=== PATIENT | female | born 1955 | race Caucasian/White ===

== ENCOUNTER 2025-06-29 14:01 | Outpatient (CLI) | payer MEDICARE | END 2025-06-29 14:02 | disposition home or self-care (01) | LOC: RAD 14:01 → EDBD 14:01 → RAD 14:02 | PROVIDERS: ATTEND Internal Medicine | DX: R06.00 Dyspnea, unspecified (principal); J90 Pleural effusion, not elsewhere classified | CPT/HCPCS: 71046 ==

== ENCOUNTER 2025-07-06 13:34 | Outpatient (CLI) | payer MEDICARE ==
[~2025-07-06 13:34] MED LIST: Iopamidol 370 76% 100 ML VIAL ONE
[2025-07-06 14:13] LABS: Estimated GFR - POC 62.0
== END 2025-07-06 13:35 | disposition home or self-care (01) ==
LOC: CT 13:34
PROVIDERS: ATTEND Family Medicine
DX: J18.9 Pneumonia, unspecified organism (principal); R06.00 Dyspnea, unspecified; R09.02 Hypoxemia; R06.89 Other abnormalities of breathing; J90 Pleural effusion, not elsewhere classified; R91.8 Other nonspecific abnormal finding of lung field; C79.51 Secondary malignant neoplasm of bone
CPT/HCPCS: 36415; 71275; 82565

== ENCOUNTER 2025-07-06 16:58 | Inpatient (IN) | payer MEDICARE ==
[2025-07-06] MEDS ORDERED: cefTRIAXone (ROCEPHIN) 2 GM VIAL ONE (18:45)
[2025-07-06] MEDS ORDERED: Azithromycin 500 MG VIAL ONE (18:46)
[2025-07-06 18:52] LABS: #Basophils 0.03 10x3/uL (0.0-0.2); #Eosinophils 0.14 10x3/uL (0.0-0.7); #Monocytes 0.13 10x3/uL (0.11-0.59); #Neutrophils 1.87 10x3/uL (1.40-6.50); %Basophils 1.3 % (0.0-1.0); %Eosinophils 5.9 % (0.0-10.0); %Lymphocytes 8.0 % (21.0-51.0); %Monocytes 5.5 % (0.0-10.0); %Neutrophils 78.9 % (42.0-75.0); Hematocrit 26.0 % (36.0-47.0); Hemoglobin 9.2 g/dL (12.0-16.0); Mean Corpuscular Hemoglobin 35.2 pg (27.0-31.0); Mean Corpuscular Volume 99.6 fL (78.0-98.0); Platelet Count 125 10x3/uL (130-400); Red Blood Cell (RBC) Count 2.61 mill/uL (4.20-5.40); White Blood Cell (WBC) Count 2.37 10x3/uL (4.8-10.8)
[2025-07-06 19:11] LABS: ALT (SGPT) 16 U/L (Less than 34); AST (SGOT) 29 U/L (11-34); Albumin 2.1 g/dL (3.1-4.5); Alkaline Phosphatase 60 U/L (40-110); Anion Gap 11 mmol/L (10-20); BUN (Urea Nitrogen) 15 mg/dL (9.8-20.1); Bilirubin, Total 0.4 mg/dL (0.3-1.2); Calc. Creatinine Clearance 0 mL/min (70-130); Calcium 8.5 mg/dL (7.8-10.44); Carbon Dioxide 27 mmol/L (23-31); Chloride 95 mmol/L (98-107); Globulin 3.5 g/dL (2.4-3.5); Glucose 95 mg/dL (80-115); Potassium 3.3 mmol/L (3.5-5.1); Sodium 130 mmol/L (136-145)
[2025-07-06] MEDS ORDERED: Ondansetron PF 4 MG/2 ML Vial IVP PRN (20:57)
[2025-07-06 22:00] VITALS: BMI 18.1
[2025-07-06] MEDS ORDERED: Enoxaparin 60 MG (0.6 mL) SYRINGE ONE (22:04)
[2025-07-06] MEDS: Enoxaparin 60 MG (0.6 mL) SYRINGE SC SCH (22:08)
[2025-07-07 01:52] LABS: Magnesium 1.9 mg/dL (1.6-2.6)
[2025-07-07 05:36] LABS: Anion Gap 12 mmol/L (10-20); BUN (Urea Nitrogen) 11 mg/dL (9.8-20.1); Calc. Creatinine Clearance 53 mL/min (70-130); Calcium 8.2 mg/dL (7.8-10.44); Carbon Dioxide 26 mmol/L (23-31); Chloride 99 mmol/L (98-107); Glucose 102 mg/dL (80-115); Magnesium 1.8 mg/dL (1.6-2.6); Potassium 3.7 mmol/L (3.5-5.1); Sodium 133 mmol/L (136-145)
[2025-07-07 05:41] LABS: #Basophils 0.03 10x3/uL (0.0-0.2); #Eosinophils 0.15 10x3/uL (0.0-0.7); #Monocytes 0.11 10x3/uL (0.11-0.59); #Neutrophils 1.64 10x3/uL (1.40-6.50); %Basophils 1.4 % (0.0-1.0); %Eosinophils 7.2 % (0.0-10.0); %Lymphocytes 7.2 % (21.0-51.0); %Monocytes 5.3 % (0.0-10.0); %Neutrophils 78.4 % (42.0-75.0); Hematocrit 26.4 % (36.0-47.0); Hemoglobin 9.0 g/dL (12.0-16.0); Mean Corpuscular Hemoglobin 34.9 pg (27.0-31.0); Mean Corpuscular Volume 102.3 fL (78.0-98.0); Platelet Count 128 10x3/uL (130-400); Red Blood Cell (RBC) Count 2.58 mill/uL (4.20-5.40); White Blood Cell (WBC) Count 2.09 10x3/uL (4.8-10.8)
[2025-07-07] MEDS: Metoprolol Succinate XL 25 MG ER.TAB PO SCH (08:33)
[2025-07-07] MEDS ORDERED: Metoprolol Succinate XL 25 MG ER.TAB PO SCH (09:00)
[2025-07-07 13:28] LABS: Legionella Urinary Ag Negative (Negative); Strep pneumo Urine Ag NEGATIVE (NEGATIVE)
[2025-07-07 14:09] LABS: Fluid, Triglycerides 15 mg/dL (Not Available); Pleural Fluid, Amylase Less than 30 U/L (Not Available); Pleural Fluid, Glucose 111 mg/dL; Pleural Fluid, LDH 161 U/L (Not Available); Pleural Fluid, Protein 3.0 g/dL
[2025-07-07 14:33] LABS: Fluid, pH - Pleural Fld Greater than 7.500 (7.60 - 7.66)
[2025-07-07 15:06] LABS: RBC Count-Automated (BF) 171 /cu.mm; WBC/Nucleated-Auto (BF) 252 /cu.mm
[2025-07-07] MEDS: Acetaminophen 325 MG TAB PO PRN (16:28)
[2025-07-07 16:33] LABS: BF Segmented Neutrophils 6 %; Cell Count Non Hematic 32 %
[2025-07-07] MEDS: cefTRIAXone\\ROCEPHIN 1 GM in Sodium Chloride 0.9% 100 ML IVPB SCH (18:18)
[2025-07-07] MEDS ORDERED: Azithromycin 500 MG in Sodium Chloride 0.9% 250 ML 250 ML IVPB SCH (20:00)
[2025-07-07] MEDS: Enoxaparin 60 MG (0.6 mL) SYRINGE SC SCH (21:08)
[2025-07-08 05:06] LABS: Hematocrit 26.4 % (36.0-47.0); Hemoglobin 8.9 g/dL (12.0-16.0); Mean Corpuscular Hemoglobin 34.6 pg (27.0-31.0); Mean Corpuscular Volume 102.7 fL (78.0-98.0); Platelet Count 121 10x3/uL (130-400); Red Blood Cell (RBC) Count 2.57 mill/uL (4.20-5.40); White Blood Cell (WBC) Count 2.06 10x3/uL (4.8-10.8)
[2025-07-08 05:08] LABS: Anion Gap 4 mmol/L (10-20); BUN (Urea Nitrogen) 11 mg/dL (9.8-20.1); Calc. Creatinine Clearance 57 mL/min (70-130); Calcium 8.1 mg/dL (7.8-10.44); Carbon Dioxide 28 mmol/L (23-31); Chloride 100 mmol/L (98-107); Glucose 97 mg/dL (80-115); Magnesium 1.8 mg/dL (1.6-2.6); Potassium 3.8 mmol/L (3.5-5.1); Sodium 128 mmol/L (136-145)
[2025-07-08 06:54] LABS: Anisocytosis MODERATE=16-30 cells HPF (0-5); Burr Cells SLIGHT = 2-5 cells HPF (0-1); Macrocytosis SLIGHT = 6-15 cells HPF (0-5); Ovalocytes SLIGHT = 2-5 cells HPF (0-1); Platelet Adequacy Comment Platelets Decreased; Poikilocytosis SLIGHT = 6-15 cells HPF (0-5); Polychromasia SLIGHT = 2-3 cells HPF (0-2); Smudge Cells 4.0 %
[2025-07-08] MEDS: Apixaban 5 MG TAB PO SCH (09:19)
[2025-07-08] MEDS: Furosemide 40 MG (4 mL) VIAL SLOW IVP SCH (11:06)
[2025-07-08 12:29] VITALS: BMI 18.1
[2025-07-08] MEDS: Cefdinir 300 MG CAP PO SCH ×2 (12:53→20:33)
[2025-07-09 08:17] VITALS: BP 91/58; TEMP 98.5
== END 2025-07-09 14:29 | disposition home or self-care (01) | DRG 186 ==
LOC: ERS 16:58 → ERHOLD 20:58 → MSONC 07-07 03:21 → OBSVTOIN 07-07 09:30
PROVIDERS: ADMIT Internal Medicine; ATTEND Internal Medicine
PROC: 0W993ZZ Drainage of Right Pleural Cavity, Percutaneous Approach (ICD-10-PCS; principal; 2025-07-07)
PROC: 3E03329 Introduction of Other Anti-infective into Peripheral Vein, Percutaneous Approach (ICD-10-PCS; 2025-07-07)
DX: J90 Pleural effusion, not elsewhere classified (principal); E43 Unspecified severe protein-calorie malnutrition; J18.9 Pneumonia, unspecified organism; J96.01 Acute respiratory failure with hypoxia; C79.31 Secondary malignant neoplasm of brain; E87.1 Hypo-osmolality and hyponatremia; C79.51 Secondary malignant neoplasm of bone; C78.2 Secondary malignant neoplasm of pleura; Z68.1 Body mass index [BMI] 19.9 or less, adult; C50.919 Malignant neoplasm of unspecified site of unspecified female breast; I48.91 Unspecified atrial fibrillation; Z86.711 Personal history of pulmonary embolism; Z79.01 Long term (current) use of anticoagulants; D64.9 Anemia, unspecified; D69.6 Thrombocytopenia, unspecified; Z98.890 Other specified postprocedural states; Z90.89 Acquired absence of other organs; F10.90 Alcohol use, unspecified, uncomplicated; Z92.3 Personal history of irradiation; D72.819 Decreased white blood cell count, unspecified; Z88.8 Allergy status to other drugs, medicaments and biological substances; E87.6 Hypokalemia; Z79.899 Other long term (current) drug therapy; Z90.49 Acquired absence of other specified parts of digestive tract; R91.8 Other nonspecific abnormal finding of lung field
CPT/HCPCS: 36415; 71045; 71275; 80048; 80053; 82150; 82565; 82945; 83605; 83615; 83735; 83880; 83986; 84157; 84478; 84484; 85025; 85060; 87040; 87070; 87116; 87205; 87206; 87449; 87899; 88112; 88305; 89051; 93005; 96374; 96375; G0378; J0456; J0696; J1650; Q9967